=== PATIENT | female | born 1985 | race Caucasian/White ===

== ENCOUNTER 2019-05-11 23:36 | Emergency (ER) | payer BC ==
[2019-05-12] MEDS ORDERED: Acetaminophen TAB* 325 MG PO ONE (00:13)
[2019-05-12 00:19] LABS: Urine Appearance Cloudy; Urine Bacteria Absent (Absent); Urine Bilirubin Negative (Negative); Urine Blood 3+ (Negative); Urine Glucose Negative (Negative); Urine Ketones Negative (Negative); Urine Nitrite Negative (Negative); Urine Protein 2+(100 mg/dL) (Negative); Urine Red Blood Cell 3+(>10/hpf) (Absent); Urine Specific Gravity 1.009 (1.010-1.030); Urine Squamous Epithelial Cell Present (Absent); Urine Urobilinogen Negative (Negative); Urine White Blood Cell 3+(>20/hpf) (Absent)
[2019-05-12 00:29] LABS: Urine Color Straw
[2019-05-12] MEDS ORDERED: Sulfamethox/Trimethoprim DS 800/160* TAB PO ONE (00:31)
--- NOTE | 2019-05-12 00:36 | ED ---
GI/ HPI - HPI Summary HPI Summary: Patient complains of mid lower abdominal pain, burning with urination, blood in urine starting at 7 PM tonight. Denies fever, cough, sore throat, CP, SOB, N/V/ D, change in BM, vaginal pain, d/c, or bleeding. History of ovarian cysts. - History of Current Complaint Chief Complaint: EDUrogenitalProblems Time Seen by Provider: 05/11/19 23:59 Stated Complaint: UTI PER PTC Hx Obtained From: Patient Hx Last Menstrual Period: <1 WEEK AGO Onset/Duration: Started Hours Ago Timing: Constant Severity: Severe Current Severity: Severe Pain Intensity: 9 Location of Pain: Suprapubic Pain Characteristics: Sharp Associated Signs and Symptoms: Positive: Dysuria - Allergy/Home Medications Allergies/Adverse Reactions: Allergies Allergy/AdvReac Type Severity Reaction Status Date / Time No Known Allergies Allergy Verified 03/16/16 22:07 PMH/Surg Hx/FS Hx/Imm Hx Endocrine/Hematology History: Denies: Hx Anticoagulant Therapy Cardiovascular History: Denies: Hx Pacemaker/ICD History: Denies: Hx Dialysis Sensory History: Denies: Hx Eye Prosthesis Opthamlomology History: Denies: Hx Legally Blind EENT History: Denies: Hx Deafness Infectious Disease History: No Infectious Disease History: Denies: Traveled Outside the [place] in Last 30 Days - Family History Known Family History: Negative: Renal Disease - Social History Alcohol Use: Occasionally Substance Use Type: Reports: None Smoking Status (MU): Never Smoked Tobacco Review of Systems Constitutional: Negative Eyes: Negative ENT: Negative Cardiovascular: Negative Respiratory: Negative Positive: Abdominal Pain Positive: burning, hematuria Musculoskeletal: Negative Skin: Negative Neurological: Negative Psychological: Normal All Other Systems Reviewed And Are Negative: Yes Physical Exam - Summary Physical Exam Summary: Abdomen soft nontender in all quadrants. Triage Information Reviewed: Yes Vital Signs On Initial Exam: Initial Vitals Temp Pulse Resp BP Pulse Ox 97.5 F 82 20 146/85 98 05/11/19 23:38 05/11/19 23:38 05/11/19 23:38 05/11/19 23:38 05/11/19 23:38 Vital Signs Reviewed: Yes Appearance: Positive: Well-Appearing Skin: Positive: Warm Head/Face: Positive: Normal Head/Face Inspection Eyes: Positive: Normal Neck: Positive: Supple Respiratory/Lung Sounds: Positive: Clear to Auscultation Cardiovascular: Positive: Normal Abdomen Description: Positive: Nontender Musculoskeletal: Positive: Normal Neurological: Positive: Normal Psychiatric: Positive: Normal AVPU Assessment: Alert - Ezio Coma Scale Best Eye Response: 4 - Spontaneous Best Motor Response: 6 - Obeys Commands Best Verbal Response: 5 - Oriented Coma Scale Total: 15 Procedures - Sedation Patient Received Moderate/Deep Sedation with Procedure: No Diagnostics - Vital Signs Vital Signs Temp Pulse Resp BP Pulse Ox 05/11/19 23:38 97.5 F 82 20 146/85 98 - Laboratory Lab Results: Lab Results 05/12/19 Range/Units 00:00 Urine Color Straw Urine Appearance Cloudy Urine pH 7.0 (5-9) Ur Specific [place] 1.009 L (1.010-1.030) Urine Protein 2+(100 mg/dl) A (Negative) Urine Ketones Negative (Negative) Urine Blood 3+ A (Negative) Urine Nitrate Negative (Negative) Urine Bilirubin Negative (Negative) Urine Urobilinogen Negative (Negative) Ur Leukocyte Esterase 3+ A (Negative) Urine WBC (Auto) 3+(>20/hpf) A (Absent) Urine RBC (Auto) 3+(>10/hpf) A (Absent) Ur Squamous Epith Cells Present A (Absent) Urine Bacteria Absent (Absent) Urine Glucose Negative (Negative) Lab Statement: Any lab studies that have been ordered have been reviewed, and results considered in the medical decision making process. GIGU Course/Dx - Course Course Of Treatment: Patient complains of mid lower abdominal pain, burning with urination, blood in urine starting at 7 PM tonight. Denies fever, cough, sore throat, CP, SOB, N/V/D, change in BM, vaginal pain, d/c, or bleeding. History of ovarian cysts. Vital signs within normal limits. UA positive for UTI. Patient deferred pelvic exam at this time. - Diagnoses Provider Diagnoses: UTI (urinary tract infection) Discharge ED - Sign-Out/Discharge Documenting (check all that apply): Patient Departure - Discharge Plan Condition: Stable Disposition: HOME Prescriptions: Sulfamethox/Trimethoprim DS* [Bactrim DS 800/160 TAB*] 1 tab PO BID 10 Days #19 tab Patient Education Materials: Urinary Tract Infection in Women (ED) Referrals: Connor Edwards MD [Primary Care Provider] - Additional Instructions: Alternate ibuprofen 600 mg with Tylenol 650 mg every 3 hours as needed for pain. Take antibiotics as directed. Follow-up with primary care. - Billing Disposition and Condition Condition: STABLE Disposition: Home
[2019-05-12 00:57] VITALS: BP 113/69
--- NOTE | 2019-05-14 15:15 | ED ---
Imaging and Labs Follow Up Follow Up Type: Labs/Cultures Labs/Culture Result: Urine culture growing >100k e. coli. Patient Communication/Plan: Pt. treated with bactrim. Final culture shows resistance to bactrim. Attempted to reach pt. today at 1515 with no answer, message left to return call. Will send in new rx for keflex based on culture. Will try to call pt. again tomorrow. Provider Diagnoses: UTI (urinary tract infection)
== END 2019-05-12 00:52 | disposition home or self-care (01) ==
LOC: ED 23:36
DX: N39.0 Urinary tract infection, site not specified (principal)
CPT/HCPCS: 81003; 81015; 87077; 87086; 87186; 99282; A9270-GY

== ENCOUNTER 2019-07-23 21:55 | Emergency (ER) | payer BC ==
--- NOTE | 2019-07-23 22:02 | UC ---
Abdominal Pain Female HPI - HPI Summary HPI Summary: Pt presents to urgent with progressive dysuria, pressure, and frequency. Pt denies vaginal discharge, itching, odor. No back pain, nausea. No fever, chills. Pt with last UTI > 1 year no other complaints. Not - on depo. Pt denies concern for STI. No analgesia taken. Pt's medications as entered in EMR by vp project reviewed this visit. - History of Current Complaint Stated Complaint: URINARY COMPLAINT Time Seen by Provider: 07/23/19 21:56 Hx Obtained From: Patient Hx Last Menstrual Period: <1 WEEK AGO ?: No Onset/Duration: Gradual Onset Severity Initially: Mild Pain Scale Used: 0-10 Numeric Location: Suprapubic Allergies/Adverse Reactions: Allergies Allergy/AdvReac Type Severity Reaction Status Date / Time No Known Allergies Allergy Verified 07/23/19 22:07 Home Medications: Home Medications buPROPion HCl [Wellbutrin Sr] 200 mg PO DAILY 07/23/19 [History Confirmed ] PMH/Surg Hx/FS Hx/Imm Hx Other History Of: Negative For: Anticoagulant Therapy - Surgical History Surgical History: None - Family History Known Family History: Positive: Non-Contributory Negative: Renal Disease - Social History Occupation: Employed Full-time Lives: With Family Alcohol Use: Occasionally Substance Use Type: None Smoking Status (MU): Never Smoked Tobacco Review of Systems All Other Systems Reviewed And Are Negative: No Constitutional: Positive: Negative. Negative: Fever Genitourinary: Positive: Dysuria, Frequency, Urgency. Negative: Hematuria, Vaginal/Penile Discharge, Vaginal/Penile Pain Physical Exam - Summary Physical Exam Summary: Vital Signs Reviewed: Yes A+Ox3, no distress Eyes: Conjunctiva Clear ENT: Hearing grossly normal neck: supple Respiratory: Positive: No respiratory distress, No accessory muscle use, CTA throughout no w/r/r Cardiovascular: skin color reflect adequate perfusion RRR nl s1, s2 no m/r abd: soft + BS no guarding, no rebound, no distended, no CVA Musculoskeletal Exam: XIE x 4 without difficulty Neurological: Positive: Alert, ambulatory without difficulty Psychological: Positive: Normal Response To proivder Skin: Positive: no rash, no ecchymosis Triage Information Reviewed: Yes Abd Pain Female Course/Dx - Course Course Of Treatment: PT presents to with urinary frequency, urgency and dysuria for 2 days. No vaginal discharge,odor On exam VSS No CVA urine with 3+ LE will culture pyridium hydrate motrin/apap Macrobid return precautions - Differential Dx/Diagnosis Provider Diagnosis: Dysuria Discharge ED - Sign-Out/Discharge Documenting (check all that apply): Patient Departure All imaging exams completed and their final reports reviewed: No Studies - Discharge Plan Condition: Stable Disposition: HOME Prescriptions: Nitrofurantoin Monohyd/M-Cryst [Macrobid 100 mg Capsule] 100 mg PO BID #14 cap Phenazopyridine TAB* [Pyridium 100 mg TAB*] 100 mg PO TID PRN #9 tab PRN Reason: burning with urination Patient Education Materials: Urinary Tract Infection in Women (ED) Referrals: Connor Edwards MD [Primary Care Provider] - Additional Instructions: - stay well hydrated - drink plenty of non-alcoholic, non caffinated beverages - your urine will be further tested - if you require any changes to your treatment, we will contact you - this usually take 2 days - Contact your primary doctor to arrange a follow-up appointment next week. Contact your doctor or return with questions or concerns - Take your antibiotics exactly as prescribed until gone - Take pyridium as prescribed for discomfort. This will make your urine blaze orange - this is normal - as discussed, this could stain your contact lens orange. - Okay to alternate ibuprofen (Advil, Motrin) and Tylenol every 3 hours for pain. Take with food - Call your doctor or return with questions or concerns. If you have increased pain, fevers, vomiting, back pain it is recommended you go to the emergency department for further evaluation and treatment - Billing Disposition and Condition Condition: STABLE Disposition: Home
[2019-07-23 22:07] VITALS: BP 137/79
[2019-07-23] MEDS ORDERED: Phenazopyridine TAB* 100 MG PO ONE (22:18)
[2019-07-23] MEDS ORDERED: Nitrofurantoin Macrocrystals* 50 MG CAP PO ONE (22:19)
== END 2019-07-23 22:30 | disposition home or self-care (01) ==
LOC: UCEAST 21:55
DX: R30.0 Dysuria (principal); R35.0 Frequency of micturition; R39.15 Urgency of urination
CPT/HCPCS: 81003; 87077; 87086; 87186; 99212; A9270-GY; G0463

== ENCOUNTER 2019-09-14 21:29 | Emergency (ER) | payer BC ==
[2019-09-14 21:43] VITALS: BP 139/67
--- NOTE | 2019-09-14 21:43 | UC ---
Complaint Female HPI - HPI Summary HPI Summary: 34yo female presenting with dysuria and urinary frequency that began tonight. Denies hematuria. Denies abdominal and flank paiin. Denies n/v. Denies fever and chills. Denies taking anything for symptom relief. - History Of Current Complaint Stated Complaint: UTI Hx Obtained From: Patient Hx Last Menstrual Period: <1 WEEK AGO - Allergies/Home Medications Allergies/Adverse Reactions: Allergies Allergy/AdvReac Type Severity Reaction Status Date / Time No Known Allergies Allergy Verified 09/14/19 21:44 Home Medications: Home Medications Control* 03/16/16 [History] buPROPion HCl [Wellbutrin Sr] 200 mg PO DAILY 07/23/19 [History Confirmed ] Nitrofurantoin Monohyd/M-Cryst [Macrobid 100 mg Capsule] 100 mg PO BID #9 cap [Rx] PMH/Surg Hx/FS Hx/Imm Hx Previously Healthy: Yes Other History Of: Negative For: Anticoagulant Therapy - Surgical History Surgical History: None Surgery Procedure, Year, and Place: tooth extraction and bone graft - Family History Known Family History: Positive: Non-Contributory Negative: Renal Disease - Social History Alcohol Use: Occasionally Substance Use Type: None Smoking Status (MU): Never Smoked Tobacco Review of Systems All Other Systems Reviewed And Are Negative: Yes Constitutional: Positive: Negative Respiratory: Positive: Negative Cardiovascular: Positive: Negative Gastrointestinal: Positive: Negative Genitourinary: Positive: Dysuria, Frequency, Urgency. Negative: Hematuria Musculoskeletal: Positive: Negative Neurological/Mental Status: Positive: Negative Physical Exam - Summary Physical Exam Summary: Vital Signs Reviewed: Yes A+Ox3, no distress, well-appearing Eyes: Conjunctiva Clear ENT: Hearing grossly normal Neck: Positive: Supple Respiratory: Positive: No respiratory distress, No accessory muscle use Cardiovascular: skin reflects adequate perfusion Abd: soft, nontender, no CVA tenderness Musculoskeletal Exam: XIE x 4 without difficulty Neurological: Positive: Alert Psychological: Positive: age appropriate behavior Skin: Positive: no rash, no ecchymosis Vital Signs: Vital Signs (72 hours) 09/14/19 21:37 Temperature 98.7 F Pulse Rate 74 Respiratory 12 Rate Blood Pressure 139/67 (mmHg) O2 Sat by Pulse 99 Oximetry Lab Results 09/14/19 Range/Units 21:51 POC Urine Color Light yellow POC Urine Clarity Cloudy POC Urine pH 6.0 (5-9) POC Ur Specif [place] 1.015 (1.010-1.030) POC Urine Protein 1+ A (Negative) POC Ur Glucose (UA) Negative (Negative) POC Urine Ketones 1+ A (Negative) POC Urine Blood 3+ A (Negative) POC Urine Nitrite Negative (Negative) POC Urine Bilirubin Negative (Negative) POC Urine Urobilinogen 0.2 (Negative) POC U Leukocyte Esteras 3+ A (Negative) Complaint Female Dx - Course Course Of Treatment: UA positive 3+ leuks and blood. I treated patient with macrobid and pyridium here with first dose. Macrobid prescription sent ot pharmacy for pickup. Patient declined prescription for pyridium. Instructed to follow up with PCP for persistent or recurrent UTI and to go to ED with any new or worsening symptoms. Patient voiced understanding and agreed with treatment plan. - Differential Dx/Diagnosis Provider Diagnosis: UTI (urinary tract infection) Discharge ED - Sign-Out/Discharge Documenting (check all that apply): Patient Departure All imaging exams completed and their final reports reviewed: No Studies - Discharge Plan Condition: Stable Disposition: HOME Prescriptions: Nitrofurantoin Monohyd/M-Cryst [Macrobid 100 mg Capsule] 100 mg PO BID #9 cap Patient Education Materials: Urinary Tract Infection in Women (ED) Referrals: Connor Edwards MD [Primary Care Provider] - If Needed Additional Instructions: As discussed, take Macrobid for treatment of your UTI. You received the first dose tonight and the remainder of your prescription has been send to your pharmacy. Increase your fluid intake. Follow up with your PCP if symptoms do not resolve or your symptoms return. Return or go to emergency room with any new or worsening symptoms. - Billing Disposition and Condition Condition: STABLE Disposition: Home
[2019-09-14] MEDS ORDERED: Nitrofurantoin Macrocrystals* 50 MG CAP PO ONE (21:59)
[2019-09-14] MEDS ORDERED: Phenazopyridine TAB* 100 MG PO ONE (22:00)
--- NOTE | 2019-09-17 19:38 | UC ---
- Progress Note Progress Note: 09/17/2019 Final sensitivity and Urine culture: positive for E.Coli. Pt Rx Nitrofurantoin PO which is sensitive. No change Barbra Delgado PA-C Course/Dx - Diagnoses Provider Diagnoses: UTI (urinary tract infection) Discharge ED - Sign-Out/Discharge Documenting (check all that apply): Post-Discharge Follow Up All imaging exams completed and their final reports reviewed: No Studies - Discharge Plan Condition: Stable Disposition: HOME Prescriptions: Nitrofurantoin Monohyd/M-Cryst [Macrobid 100 mg Capsule] 100 mg PO BID #9 cap Patient Education Materials: Urinary Tract Infection in Women (ED) Referrals: Connor Edwards MD [Primary Care Provider] - If Needed Additional Instructions: As discussed, take Macrobid for treatment of your UTI. You received the first dose tonight and the remainder of your prescription has been send to your pharmacy. Increase your fluid intake. Follow up with your PCP if symptoms do not resolve or your symptoms return. Return or go to emergency room with any new or worsening symptoms. - Billing Disposition and Condition Condition: STABLE Disposition: Home
== END 2019-09-14 22:14 | disposition home or self-care (01) ==
LOC: UCEAST 21:29
DX: N39.0 Urinary tract infection, site not specified (principal)
CPT/HCPCS: 81003; 87077; 87086; 87186; 99212; A9270-GY; G0463